=== PATIENT | male | born 1960 | race Two or more races ===

== ENCOUNTER 2021-08-20 17:38 | Emergency (ER) | payer OTHER ==
[~2021-08-20] VITALS: Ht 160 cm; Wt 47.6 kg
[2021-08-20 17:59] VITALS: BP 144/76
--- NOTE | 2021-08-20 18:40 | NUR ---
Dr. Foley evaluating patient at bedside.
[2021-08-20] MEDS ORDERED: HYDR25SU91 RC (19:26)
--- NOTE | 2021-08-20 19:40 | NUR ---
NO NURSING INTERVENTIONS DONE FOR PT.
[2021-08-20 19:43] VITALS: BP 144/76
--- NOTE | 2021-08-20 19:43 | NUR ---
Patient discharged with v/s stable. Written and verbal after care instructions given and explained. Patient alert, oriented and verbalized understanding of instructions. Ambulatory with steady gait. All questions addressed prior to discharge. ID band removed. Patient advised to follow up with PMD. Rx of HYDROCORTISONE ACETATE given. Patient educated on indication of medication including possible reaction and side effects. Opportunity to ask questions provided and answered.
== END 2021-08-20 19:40 | disposition home or self-care (01) ==
LOC: MED 17:38
DX: K59.00 Constipation, unspecified (principal); K64.4 Residual hemorrhoidal skin tags; K64.8 Other hemorrhoids; Z79.899 Other long term (current) drug therapy
CPT/HCPCS: 99282

== ENCOUNTER 2022-05-23 15:53 | Emergency (ER) | payer OTHER ==
[~2022-05-23] VITALS: Ht 160 cm; Wt 45.4 kg
[~2022-05-23 15:53] MED LIST: HYDR25SU91 RC
[2022-05-23 16:03] VITALS: BP 116/73
[2022-05-23] MEDS ORDERED: ACET-10509 PO (16:33)
[2022-05-23] MEDS ORDERED: IBUP-2213 PO (16:33)
[2022-05-23] MEDS ORDERED: ACETAMINOPHEN EXTRA STRENGTH 500 MG TAB PO ONE (16:40)
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
[2022-05-23] MEDS ORDERED: AMOX-999 PO (18:39)
[2022-05-23 18:45] VITALS: BP 112/67
== END 2022-05-23 18:45 | disposition home or self-care (01) ==
LOC: MED 15:53
DX: S06.0X0A Concussion without loss of consciousness, initial encounter (principal); Y04.0XXA Assault by unarmed brawl or fight, initial encounter; Y93.89 Activity, other specified; Y92.89 Other specified places as the place of occurrence of the external cause; Y99.8 Other external cause status
CPT/HCPCS: 70450; 70486; 72125; 99284

== ENCOUNTER 2023-03-31 23:25 | Emergency (ER) | payer OTHER ==
[~2023-03-31] VITALS: Ht 160 cm; Wt 68.0 kg
[~2023-03-31 23:25] MED LIST changes: +ACET-10509 PO; +AMOX-999 PO; +IBUP-2213 PO
[2023-03-31 23:28] VITALS: BP 179/106; PULSE 90; RESP 18; TEMP 98.6; O2SAT 99
[2023-04-01] MEDS ORDERED: KETOROLAC 60 MG/2 ML VIAL IM ONE (00:35)
[2023-04-01] MEDS ORDERED: NAPR-54 PO (01:04)
[2023-04-01 01:10] VITALS: BP 133/66; PULSE 79; RESP 18; TEMP 98; O2SAT 100
== END 2023-04-01 01:10 | disposition home or self-care (01) ==
LOC: MED 23:25
DX: S33.5XXA Sprain of ligaments of lumbar spine, initial encounter (principal); V49.88XA Car occupant (driver) (passenger) injured in other specified transport accidents, initial encounter; Y93.89 Activity, other specified; Y92.89 Other specified places as the place of occurrence of the external cause; Y99.8 Other external cause status
CPT/HCPCS: 72110; 96372; 99283; J1885